=== PATIENT | female | born 1980 | race Caucasian/White ===

== ENCOUNTER 2018-03-30 21:51 | Observation (INO) | payer MEDICAID ==
[~2018-03-30] VITALS: Ht 144.8 cm; Wt 76.7 kg
[2018-03-30] MEDS: LACTATED RINGERS 1,000 ML IV SCH ×2 (23:15→23:52)
[2018-03-30] MEDS: TERBUTALINE SULFATE 1MG/ML VIAL SUBCUT PRN ×2 (23:17→23:54)
[2018-03-30 23:42] LABS: CLARITY URINE CLEAR (CLEAR); COLOR URINE YELLOW (YELLOW); KETONES URINE NEGATIVE (NEGATIVE); LEUKOCYTE ESTERASE URINE TRACE (NEGATIVE); NITRITE URINE NEGATIVE (NEGATIVE); OCCULT BLOOD URINE TRACE (NEGATIVE); PROTEIN URINE NEGATIVE (NEGATIVE); SPECIFIC GRAVITY URINE 1.007 (1.005-1.030); UROBILINOGEN URINE 0.2 E.U./dL (0.2-1.0)
[2018-03-31] MEDS ORDERED: PREN1TAB33 MT (00:51)
[2018-03-31] MEDS ORDERED: CEFAZOLIN 2,000 MG in DEXT 5% WATER 100 ML IV SCH (01:00)
== END 2018-03-31 01:30 | disposition home or self-care (01) ==
LOC: L&D 21:51
PROVIDERS: ADMIT Specialist; ATTEND Specialist
DX: O26.893 Other specified pregnancy related conditions, third trimester (principal); R10.9 Unspecified abdominal pain; Z3A.36 36 weeks gestation of pregnancy
CPT/HCPCS: 81003; 96361; 96372; 96374; 99281; G0378; J0690; J3105; J7120; 59412; 96360; 96365; J7060

== ENCOUNTER 2018-04-06 12:10 | Inpatient (IN) | payer MEDICAID ==
[~2018-04-06] VITALS: Ht 144.8 cm; Wt 78.5 kg
[~2018-04-06 12:10] MED LIST: PREN1TAB33 MT
[2018-04-06] MEDS ORDERED: NALOXONE HCL 0.4 MG/ML 1ML VIAL IM PRN (15:45)
[2018-04-06] MEDS ORDERED: METHYLERGONOVINE MALEATE 0.2 MG/ML IM PRN (15:45)
[2018-04-06] MEDS ORDERED: CARBOPROST TROMETHAMINE 250 MCG/ML AMPUL IM PRN (15:45)
[2018-04-06] MEDS ORDERED: MORPHINE SULFATE/PF 1MG/ML 10ML AMP ONE (15:47)
[2018-04-06] MEDS ORDERED: FENTANYL CITRATE/PF 50MCG/ML 2ML VIAL ONE (15:47)
[2018-04-06] MEDS ORDERED: SODIUM CHLORIDE 0.9% 10ML VIAL ONE (15:49)
[2018-04-06] MEDS ORDERED: EPHEDRINE SULFATE 50MG/ML VIAL ONE (15:49)
[2018-04-06 16:02] LABS: CLARITY URINE CLEAR (CLEAR); COLOR URINE YELLOW (YELLOW); KETONES URINE NEGATIVE (NEGATIVE); LEUKOCYTE ESTERASE URINE TRACE (NEGATIVE); NITRITE URINE NEGATIVE (NEGATIVE); OCCULT BLOOD URINE TRACE (NEGATIVE); PROTEIN URINE NEGATIVE (NEGATIVE); UROBILINOGEN URINE 0.2 E.U./dL (0.2-1.0)
[2018-04-06 16:04] LABS: BASOPHILS % 0.7 % (0.0-2.0); EOSINOPHILS % 0.6 % (0.0-5.0); HEMATOCRIT. 33.9 % (36.0-48.0); HEMOGLOBIN. 11.6 g/dL (12.0-16.0); LYMPHOCYTES % 20.2 % (20.0-50.0); MEAN CORPUSCULAR VOLUME 81.9 fL (81.0-99.0); MEAN PLATELET VOLUME 8.6 fl (7.4-10.4); MONOCYTES % 4.9 % (2.0-8.0); NEUTROPHILS % 73.6 % (40.0-76.0); PLATELET 198 x1000/uL (130-400); RED BLOOD CELL COUNT 4.14 mill/uL (4.2-5.4); RED CELL DISTRIBUTION WIDTH 16.1 % (11.6-14.6)
[2018-04-06 16:10] LABS: INR 0.9; PARTIAL THROMBOPLASTIN TIME 29.1 sec (23.4-31.0); PROTHROMBIN TIME 9.8 sec (9.4-11.6)
[2018-04-06] MEDS: LACTATED RINGERS 1,000 ML IV SCH ×2 (16:20→16:21)
[2018-04-06 16:23] LABS: *AMPHETAMINES SCREEN URINE NEGATIVE (NEGATIVE); *BARBITURATES SCREEN URINE NEGATIVE (NEGATIVE); *BENZODIAZEPINES SCREEN URINE NEGATIVE (NEGATIVE); *COCAINE SCREEN URINE NEGATIVE (NEGATIVE)
[2018-04-06 16:24] LABS: CANNABINOID URINE SCREEN NEGATIVE (NEGATIVE); METHADONE URINE SCREEN NEGATIVE (NEGATIVE); OPIATES URINE SCREEN NEGATIVE (NEGATIVE); PHENCYCLIDINE URINE SCREEN NEGATIVE (NEGATIVE)
[2018-04-06] MEDS ORDERED: DIPHENHYDRAMINE 50MG/ML VIAL IV PRN ×3 (16:30)
[2018-04-06] MEDS ORDERED: METOCLOPRAMIDE HCL 10MG/2ML VIAL IV PRN (16:30)
[2018-04-06] MEDS ORDERED: FENTANYL CITRATE/PF 50MCG/ML 2ML VIAL IV PRN (16:30)
[2018-04-06] MEDS ORDERED: KETOROLAC 30MG/ML VIAL IV PRN (16:30)
[2018-04-06] MEDS ORDERED: DIPHENHYDRAMINE 50MG/ML VIAL IM PRN (16:30)
[2018-04-06] MEDS ORDERED: MORPHINE SULFATE 4 MG/ML CPJ (NOT FOR IM USE) IV PRN (16:30)
[2018-04-06] MEDS ORDERED: NALOXONE HCL 0.4 MG/ML 1ML VIAL IV PRN (16:30)
[2018-04-06] MEDS ORDERED: MEPERIDINE HCL/PF 25MG/ML CPJ IV PRN (16:30)
[2018-04-06] MEDS ORDERED: ONDANSETRON HCL 4MG/2ML VIAL IV PRN ×3 (16:30→19:00)
[2018-04-06 16:46] LABS: RUBELLA IGG 118.1 IU/mL (4.99-10)
[2018-04-06 16:47] LABS: HEPATITIS B SURFACE ANTIGEN NEGATIVE
[2018-04-06] MEDS ORDERED: OXYTOCIN 10 UNITS/ML 1ML ONE (17:40)
[2018-04-06] MEDS ORDERED: ONDANSETRON HCL 4MG/2ML VIAL ONE (17:40)
[2018-04-06] MEDS ORDERED: CEFAZOLIN SODIUM 1000MG/VIAL ONE (17:40)
[2018-04-06] MEDS ORDERED: DEXT 5%/LR + PITOCIN 20UNITS/L 1,000 ML IV SCH (18:54)
[2018-04-06] MEDS ORDERED: IBUPROFEN 400MG TABLET PO PRN (19:00)
[2018-04-06] MEDS ORDERED: HEMORRHOIDAL SUPP PR PRN (19:00)
[2018-04-06] MEDS ORDERED: TETANUS, DIPHTHERIA, PERTUSSIS VAC/PF 0.5ML (>7YR OLD) IM ONE (19:00)
[2018-04-06] MEDS ORDERED: DIPHENHYDRAMINE 25MG CAPSULE PO PRN (19:00)
[2018-04-06] MEDS ORDERED: HYDROCODONE/ACETAMINOPHEN 5/325MG TABLET PO PRN (19:00)
[2018-04-06] MEDS ORDERED: LANOLIN OINT 0.25 GM TUBE TOP PRN (19:00)
[2018-04-06] MEDS ORDERED: BISACODYL 10MG SUPP PR PRN (19:00)
[2018-04-06] MEDS: OXYTOCIN 20 UNITS in LACTATED RINGERS 1,000 ML IV SCH ×2 (19:36→19:40)
[2018-04-06 21:40] VITALS: BP 129/72
[2018-04-06 22:10] VITALS: BP 125/69
[2018-04-06 22:40] VITALS: BP 122/70
[2018-04-06 23:40] VITALS: BP 122/73
[2018-04-07] MEDS: OXYTOCIN 20 UNITS in LACTATED RINGERS 1,000 ML IV SCH (01:49)
[2018-04-07 03:55] VITALS: BP 118/68
[2018-04-07 07:08] LABS: HEMATOCRIT. 28.3 % (36.0-48.0); HEMOGLOBIN. 9.7 g/dL (12.0-16.0); MEAN CORPUSCULAR HEMOGLOBIN 28.2 pg (28.0-32.0); MEAN CORPUSCULAR VOLUME 82.5 fL (81.0-99.0); MEAN PLATELET VOLUME 8.6 fl (7.4-10.4); PLATELET 166 x1000/uL (130-400); RED BLOOD CELL COUNT 3.43 mill/uL (4.2-5.4); RED CELL DISTRIBUTION WIDTH 15.8 % (11.6-14.6)
[2018-04-07 08:06] LABS: PLATELET ESTIMATE NORMAL
[2018-04-07] MEDS: PRENATAL VIT/FE FUMARATE/FA TABLET PO SCH (08:19)
[2018-04-07] MEDS: SIMETHICONE 80MG TABLET CHEW PO SCH ×3 (08:19→21:07)
[2018-04-07 08:30] VITALS: BP 93/50
[2018-04-07] MEDS: HYDROCODONE/ACETAMINOPHEN 5/325MG TABLET PO PRN ×2 (12:26→21:05)
[2018-04-07] MEDS: FERROUS SULFATE 325MG TABLET PO SCH (15:17)
[2018-04-07 17:18] VITALS: BP 93/58
[2018-04-07 19:00] VITALS: BP 94/55
[2018-04-07] MEDS: DOCUSATE SODIUM 100MG CAPSULE PO SCH (21:06)
[2018-04-07] MEDS: MAGNESIUM/ALUMINUM HYDROXIDE/SIMETHICONE 30ML UDC PO SCH (21:06)
[2018-04-07 23:55] VITALS: BP 103/70
[2018-04-08 03:50] VITALS: BP 107/64
[2018-04-08] MEDS: HYDROCODONE/ACETAMINOPHEN 5/325MG TABLET PO PRN ×3 (06:08→20:15)
[2018-04-08 09:00] VITALS: BP 116/62
[2018-04-08] MEDS: SIMETHICONE 80MG TABLET CHEW PO SCH ×3 (09:47→17:37)
[2018-04-08] MEDS: PRENATAL VIT/FE FUMARATE/FA TABLET PO SCH (09:47)
[2018-04-08] MEDS: FERROUS SULFATE 325MG TABLET PO SCH ×3 (09:47→17:37)
[2018-04-08] MEDS: MAGNESIUM/ALUMINUM HYDROXIDE/SIMETHICONE 30ML UDC PO SCH ×3 (13:03→21:29)
[2018-04-08 16:07] VITALS: BP 103/63
[2018-04-08 20:00] VITALS: BP 114/69
[2018-04-08] MEDS: DOCUSATE SODIUM 100MG CAPSULE PO SCH (21:29)
[2018-04-09 00:01] VITALS: BP 98/57
[2018-04-09] MEDS: HYDROCODONE/ACETAMINOPHEN 5/325MG TABLET PO PRN (03:33)
[2018-04-09 04:00] VITALS: BP 103/65
[2018-04-09 07:29] VITALS: BP 104/66
[2018-04-09] MEDS: MAGNESIUM/ALUMINUM HYDROXIDE/SIMETHICONE 30ML UDC PO SCH (07:48)
[2018-04-09] MEDS: PRENATAL VIT/FE FUMARATE/FA TABLET PO SCH (07:49)
[2018-04-09] MEDS: SIMETHICONE 80MG TABLET CHEW PO SCH (07:49)
[2018-04-09] MEDS: FERROUS SULFATE 325MG TABLET PO SCH (07:49)
[2018-04-09] MEDS ORDERED: TETANUS, DIPHTHERIA, PERTUSSIS VAC/PF 0.5ML (>7YR OLD) IM ONE (09:00)
== END 2018-04-09 15:00 | disposition home or self-care (01) | DRG 540 ==
LOC: L&D 12:10 → OBSVTOIN 12:10 → 7EST PP/OB 21:30
PROVIDERS: ADMIT Specialist; ATTEND Specialist
PROC: 0UB70ZZ Excision of Bilateral Fallopian Tubes, Open Approach (ICD-10-PCS; 2018-04-06)
PROC: 10D00Z1 Extraction of Products of Conception, Low, Open Approach (ICD-10-PCS; principal; 2018-04-06 18:19)
DX: O69.81X0 Labor and delivery complicated by cord around neck, without compression, not applicable or unspecified (principal); O45.93 Premature separation of placenta, unspecified, third trimester; O09.523 Supervision of elderly multigravida, third trimester; O24.429 Gestational diabetes mellitus in childbirth, unspecified control; O34.211 Maternal care for low transverse scar from previous cesarean delivery; O90.81 Anemia of the puerperium; D64.9 Anemia, unspecified; Z37.0 Single live birth; Z3A.38 38 weeks gestation of pregnancy; Z30.2 Encounter for sterilization
CPT/HCPCS: 36415; 76805; 76818; 80305; 81003; 85025; 85610; 85730; 86592; 86703; 86762; 86850; 86900; 86920; 87340; 88302; 88307; 90715; A4216; J0690; J2274; J2405; J3010; J3490; J7120; A4315